=== PATIENT | female | born 1980 | race Caucasian/White ===

== ENCOUNTER 2022-12-29 21:02 | Emergency (ER) | payer OTHER, BC ==
[~2022-12-29] VITALS: Ht 162.6 cm; Wt 68.0 kg
[2022-12-29 21:14] VITALS: BP_SYST 125; PULSE 77; RESP 20; TEMP 97.9; O2SAT 99
[2022-12-29] MEDS ORDERED: IBUP-1969 PO (22:44)
[2022-12-29 23:27] VITALS: BP_SYST 124; PULSE 84; RESP 18; TEMP 98.4; O2SAT 96
== END 2022-12-29 23:20 | disposition home or self-care (01) ==
LOC: SED 21:02
DX: S50.11XA Contusion of right forearm, initial encounter (principal); S89.81XA Other specified injuries of right lower leg, initial encounter; Z88.5 Allergy status to narcotic agent; Z79.899 Other long term (current) drug therapy; Y03.0XXA Assault by being hit or run over by motor vehicle, initial encounter; Y93.89 Activity, other specified; Y92.89 Other specified places as the place of occurrence of the external cause; Y99.8 Other external cause status
CPT/HCPCS: 73090; 73590-TC; 99284